=== PATIENT | female | born 2000 | race Caucasian/White ===

== ENCOUNTER 2022-06-03 11:15 | Inpatient (IN) ==
[~2022-06-03 11:15] MED LIST: Famotidine 20 MG/2 ML VIAL IVP PRN; Metoclopramide 10 MG/2 ML VIAL IVP PRN; Naloxone 0.4 MG/ML INJ IVP PRN
[2022-06-03 12:17] LABS: Basophils % 0.3 %; Eosinophils # 0.1 K/mcL (0.0-0.6); Eosinophils % 0.7 %; Hematocrit 31.2 % (35.3-44.9); Hemoglobin 10.8 g/dL (11.5-15.4); Immature Granulocytes % 0.6 % (0-4); Lymphocytes # 1.7 K/mcL (0.6-4.6); Lymphocytes % 14.8 %; Mean Corpuscular HGB Conc 34.6 g/dL (31.6-35.5); Mean Corpuscular Hemoglobin 30.4 pg (28.0-33.3); Mean Corpuscular Volume 87.9 fL (83.0-100.0); Mean Platelet Volume 10.6 fL (9.4-12.4); Monocytes # 0.5 K/mcL (0.0-1.3); Monocytes % 4.4 %; Neutrophils # 9.1 K/mcL (1.6-8.9); Platelet Count 252 K/mcL (140-400); Red Blood Count 3.55 M/mcL (3.82-4.97); Red Cell Distribution Width 12.4 % (11.5-14.5); Segmented Neutrophils % 79.2 %; White Blood Count 11.5 K/mcL (4.3-11.1)
[2022-06-03] MEDS ORDERED: miSOPROStoL 25 MCG TABLET PO PRN (12:23)
[2022-06-03] MEDS ORDERED: Ropivacaine/PF 0.2% 20 ML VIAL EP ONE (12:26)
[2022-06-03] MEDS ORDERED: Naloxone 0.4 MG/ML INJ IVP PRN (12:26)
[2022-06-03] MEDS ORDERED: *HR* FentaNYL (PF) 100 MCG/2 ML VIAL EP ONE (12:26)
[2022-06-03] MEDS ORDERED: Ondansetron 4 MG/2 ML VIAL IVP PRN (12:26)
[2022-06-03] MEDS ORDERED: EPHEDrine 50 MG/ML VIAL IVP PRN (12:26)
[2022-06-03] MEDS ORDERED: Epidural Premix (fent/bupiv) 110 ML EP SCH (12:30)
[2022-06-03] MEDS ORDERED: Oxytocin 30 UNIT/503 ML BAG IVC SCH ×2 (12:30→17:30)
[2022-06-03] MEDS ORDERED: Ringers Solution, Lactated 1,000 ML ONE (12:50)
[2022-06-03] MEDS: Ringers Solution, Lactated 1,000 ML IVC SCH ×3 (13:02→18:46)
[2022-06-03 13:26] LABS: Amphetamine Screen,Urine Negative ng/mL (Cutoff=1000); Barbiturate Screen,Urine Negative ng/mL (Cutoff=200); Benzodiazepines Screen,Urine Negative ng/mL (Cutoff=200); Cannabinoid Screen,Urine Negative ng/mL (Cutoff = 50); Cocaine Screen,Urine Negative ng/mL (Cutoff= 300); Opiate Screen,Urine Negative ng/mL (Cutoff=300); Phencyclidine Screen,Urine Negative ng/mL (Cutoff=25)
[2022-06-03] MEDS ORDERED: *HR* Nalbuphine 10 MG/ML AMPUL IV PRN (14:36)
[2022-06-03] MEDS ORDERED: *HR* Nalbuphine 10 MG/ML AMPUL ONE (14:37)
[2022-06-03] MEDS ORDERED: Ropivacaine/PF 0.2% 20 ML VIAL ONE (18:09)
[2022-06-03] MEDS ORDERED: Ibuprofen 600 MG TABLET PO ONE (23:15)
[2022-06-04] MEDS ORDERED: Benzocaine/Menthol 56 GM AEROSOL SPRAY TP PRN (01:59)
[2022-06-04] MEDS ORDERED: Lanolin 7 G OINT...G. TP PRN (01:59)
[2022-06-04] MEDS ORDERED: Ondansetron ODT 4 MG TAB.RAPDIS SL PRN (01:59)
[2022-06-04] MEDS ORDERED: Oxytocin 30 UNIT/503 ML BAG IVC SCH (01:59)
[2022-06-04] MEDS ORDERED: OXYTOCIN/RINGERS LACTATE 10 UNIT/166.6 ML BAG IVC ONE (01:59)
[2022-06-04] MEDS: Ibuprofen 600 MG TABLET PO SCH ×3 (02:09→17:49)
[2022-06-04] MEDS: Acetaminophen 325 MG TABLET PO SCH ×3 (02:11→21:04)
[2022-06-04 07:24] VITALS: O2SAT 98
[2022-06-04] MEDS ORDERED: Prenatal Vit/FA 1 EACH TABLET PO SCH (09:00)
[2022-06-04] MEDS ORDERED: Metoprolol XL (24 HR) Succ 25 MG TAB.ER.24H PO SCH (09:00)
[2022-06-04] MEDS ORDERED: *HR* HYDROcodone/Acet 5/325 mg TABLET PO ONE (12:44)
[2022-06-05] MEDS: Ibuprofen 600 MG TABLET PO SCH ×2 (00:30→06:29)
[2022-06-05] MEDS: Acetaminophen 325 MG TABLET PO SCH (06:29)
[2022-06-05 07:15] VITALS: BP 123/77; PULSE 81; TEMP 98.1
== END 2022-06-05 08:20 | disposition home or self-care (01) | DRG 806 ==
LOC: 1NENULAB → 1NENUOBS 06-04 02:00
PROVIDERS: ADMIT Registered Nurse; ATTEND Registered Nurse